=== PATIENT | male | born 1945 | race Caucasian/White ===

== ENCOUNTER 2021-10-30 21:09 | Emergency (ER) | payer OTHER ==
[~2021-10-30] VITALS: Ht 175.3 cm; Wt 99.8 kg
[2021-10-30] MEDS ORDERED: AVAPRO75 MG (21:13)
[2021-10-31] MEDS ORDERED: MOBIC15 MG PO (04:14)
[2021-10-31] MEDS ORDERED: ORPHENADRINE C100 MG PO (04:14)
== END 2021-10-31 04:27 | disposition home or self-care (01) ==
LOC: ER 21:09
DX: S00.03XA Contusion of scalp, initial encounter (principal); S60.212A Contusion of left wrist, initial encounter; S70.02XA Contusion of left hip, initial encounter; S70.01XA Contusion of right hip, initial encounter; M54.89 Other dorsalgia; M54.2 Cervicalgia; W01.198A Fall on same level from slipping, tripping and stumbling with subsequent striking against other object, initial encounter; Y93.01 Activity, walking, marching and hiking; Y92.481 Parking lot as the place of occurrence of the external cause; Y99.8 Other external cause status

== ENCOUNTER 2023-03-05 19:25 | Inpatient (IN) | payer OTHER ==
[~2023-03-05] VITALS: Ht 167.6 cm; Wt 108.9 kg
[~2023-03-05 19:25] MED LIST: AVAPRO75 MG; MOBIC15 MG PO; ORPHENADRINE C100 MG PO
--- NOTE | 2023-03-05 19:52 | NUR ---
PACIENTE ALERTA Y ORIENTADO POR 3 ESFERAS ACOMPANADO POR FAMILIAR QUIEN REFIERE QUE PACIENTE DESDE LA TARDE BLAKE SENTIDO MAGEN DOLOR DE PECHO, MARI Y DEBILIDAD EN BRAZO DERECHO. SE MIDEN S/V SE REALIZA EKG, SE PRESENTA A DR. RANDALL SE UBICA EN AREA DE OBSERVACION.
--- NOTE | 2023-03-05 20:16 | NUR ---
SE ORIENTA PTE SOBRE TX A SEGUIR, EL CUAL REFIERE ENTENDER. SE COLECTAN MUESTRAS UTILIZANDO MEDIDAS ASEPTICAS
--- NOTE | 2023-03-05 22:07 | NUR ---
SE REALIZA MIKAYLAION, #18 LT PATENTE.
--- NOTE | 2023-03-05 22:57 | NUR ---
SE RECIBE PTE ALERTA Y ORIENTADO POR DARY ESFERAS CON BUEN PATRON RESPIRATORIO. SE CONECTA A MONITOR CARDIACO, NBP Y OXIMETRIA CONTINUA. SE COLECTA PRIMERAS MUESTRAS DE CK, CKMB, RENAL PANEL Y COVID AG. SE ADMINISTRA DRIP DE TRIDIL 50MG/250ML @3ML/HR. SE COLOCA CANULA NASAL A 3LT. PENDIENTE TRABAJAR ORDENES DE ADMISION.
== END 2023-03-09 14:44 | disposition designated cancer center or children's hospital (05) | DRG 282 ==
LOC: ER 19:25 → MEDJ 22:40
PROVIDERS: ADMIT Internal Medicine; ATTEND Internal Medicine
PROC: 4A12X4Z Monitoring of Cardiac Electrical Activity, External Approach (ICD-10-PCS; principal; 2023-03-05)
PROC: B246ZZZ Ultrasonography of Right and Left Heart (ICD-10-PCS; 2023-03-05)
PROC: B345ZZZ Ultrasonography of Bilateral Common Carotid Arteries (ICD-10-PCS; 2023-03-05)
PROC: B348ZZZ Ultrasonography of Bilateral Internal Carotid Arteries (ICD-10-PCS; 2023-03-05)
PROC: B020ZZZ Computerized Tomography (CT Scan) of Brain (ICD-10-PCS; 2023-03-05)
PROC: 3E0F7SF Introduction of Other Gas into Respiratory Tract, Via Natural or Artificial Opening (ICD-10-PCS; 2023-03-05)
DX: I24.9 Acute ischemic heart disease, unspecified (principal); I21.4 Non-ST elevation (NSTEMI) myocardial infarction; I11.9 Hypertensive heart disease without heart failure; I35.0 Nonrheumatic aortic (valve) stenosis; R42 Dizziness and giddiness; Z20.822 Contact with and (suspected) exposure to COVID-19; Z87.891 Personal history of nicotine dependence

== ENCOUNTER 2023-06-05 22:13 | Emergency (ER) | payer OTHER ==
[~2023-06-05] VITALS: Ht 180.3 cm; Wt 93.0 kg
[2023-06-06] MEDS ORDERED: PLAVIX75 MG (00:13)
[2023-06-06] MEDS ORDERED: TAMS0.4C (00:13)
[2023-06-06] MEDS ORDERED: CHILDREN'S ASPI81 MG (00:13)
== END 2023-06-06 03:43 | disposition home or self-care (01) ==
LOC: ER 22:13
DX: I25.798 Atherosclerosis of other coronary artery bypass graft(s) with other forms of angina pectoris (principal); I10 Essential (primary) hypertension

== ENCOUNTER → 2024-07-17 | Emergency (ER) | payer OTHER ==
[~2024-07-17] VITALS: Ht 180.3 cm; Wt 97.5 kg
[~2024-07-17] MED LIST changes: +ATORVASTATIN CA40 MG PO; +CHILDREN'S ASPI81 MG; +PLAVIX75 MG; +TAMS0.4C; +TOPROL XL100 M1 PO
== END | disposition left against medical advice (07) ==
LOC: ER 02:24
DX: Z53.21 Procedure and treatment not carried out due to patient leaving prior to being seen by health care provider (principal)